=== PATIENT | female | born 1965 | race Hispanic/Latino ===

== ENCOUNTER 2022-01-26 05:55 | Day surgery (SDC) | payer BC ==
[2022-01-26] MEDS ORDERED: MIDAZOLAM 2 MG/2 ML INJ IV NR (06:00)
[2022-01-26] MEDS ORDERED: LACTATED RINGERS 1,000 ML IV SCH (06:00)
[2022-01-26] MEDS ORDERED: WATER FOR IRRIG STERILE 1,500 ML BOTTLE IR ONE (07:37)
[2022-01-26] MEDS ORDERED: WATER FOR IRRIG STERILE 2000 ML IR ONE (07:37)
[2022-01-26] MEDS ORDERED: ONDANSETRON 4 MG/2 ML INJ IV PRN (07:50)
--- NOTE | 2022-01-26 07:50 | Anesthesia Consultation ---
Anesthesia Consult and Med Hx Date of service: 01/26/22 - Airway Anesthetic Teeth Evaluation: Good (crack lower left molar) ROM Head & Neck: Adequate Mental/Hyoid Distance: Adequate Mallampati Class: Class II Intubation Access Assessment: Probably Good - Pre-Operative Health Status ASA Pre-Surgery Classification: ASA2 Proposed Anesthetic Plan: General - Pulmonary Hx Smoking: No Hx Respiratory Symptoms: No Hx Sleep Apnea: No (NATE PRE SCREEN LOW RISK) - Cardiovascular System Hx Hypertension: No Hx Heart Attack/AMI: No (recent negative stress test and normal EF) Hx Percutaneous Transluminal Coronary Angioplasty (PTCA): No Hx Cardia Arrhythmia: Yes (a-fib/flutter; took metoprolol and flecainide this morning) Hx Pacemaker: No Hx Internal Defibrillator: No - Central Nervous System CVA: No - Endocrine Hx Renal Disease: No Hx Liver Disease: No Hx Insulin Dependent Diabetes: No Hx Non-Insulin Dependent Diabetes: No Hx Thyroid Disease: No - Additional Comments Anesthesia Medical History Comments: No hx anesthetic complications.
--- NOTE | 2022-01-26 07:50 | Anesthesia Day of Surgery ---
Anesthesia Day of Surgery - Day of Surgery Patient Examined: Yes Patient H&P Reviewed: Yes Patient is NPO: Yes
[2022-01-26] MEDS ORDERED: HYDROmorphone 1 MG/1 ML INJ IV PRN (08:00)
[2022-01-26] MEDS ORDERED: ceFAZolin/Water 2 GM/20 ML 2 GM/20 ML SYRINGE IV ONE (08:05)
[2022-01-26] MEDS ORDERED: ceFAZolin/STERILE WATER 2 GM/20 ML SYRINGE IV NR (10:00)
--- NOTE | 2022-01-26 10:28 | Operative Report ---
DATE OF SURGERY: 01/26/2022 PREOPERATIVE DIAGNOSES: Pelvic pain and microscopic hematuria. POSTOPERATIVE DIAGNOSES: Pelvic pain and microscopic hematuria. PROCEDURES: Cystoscopy, hydrodistention, bimanual exam, retrograde. SURGEON: Luis Nicole MD ANESTHESIA: General. FINDINGS: This is a woman with pelvic pain and irritation. She now presents for cystoscopic evaluation under anesthesia. All risks and implications discussed. DESCRIPTION OF PROCEDURE: The patient was brought to the operating room and placed on the operating table. Following induction of anesthesia placed in the lithotomy position, prepped and draped in the usual sterile fashion. Cystoscopy showed no papillary lesions. Retrograde showed good filling, good drainage. No persistent filling defects. There was no active bleeding. There was a small erythema of posterior wall, which was biopsied and cauterized. A hydrodistention was done first, easily accommodated over 750 mL. The patient tolerated the procedure well. There were a few glomerulations posteriorly, but not diffusely. The patient tolerated the procedure well and brought to recovery in a stable condition. TID: [id number] RECEIPT: [id number] JACQUELIN/PEDRO
--- NOTE | 2022-01-26 10:33 | Post Anesthesia Evaluation ---
- Post Anesthesia Evaluation Patient Participated: Yes Airway Patent: Yes Stable Respiratory Function: Yes Nausea/Vomiting: No Temp > 96.8F: Yes Pain Manageable: Yes Adequeate Hydration: Yes Anesthesia Complications: No
--- NOTE | 2022-01-26 11:37 | Discharge Summary ---
Short Stay Discharge Plan Activity: other (no straining ) Weight Bearing Status: Full Weight Bearing Diet: low fat, low cholesterol, low salt Additional Instructions: KEEP FOLLOW UP APPOINTMENT TAKE MEDS PRESCRIBED YOU MAY RESUME YOUR REGULAR DIET -- AVOID SPICY OR GREASY FOODS FOR FIRST MEAL DO NOT DRIVE, OPERATE HEAVY EQUIPMENT OR SIGN LEGAL DOCUMENTS X 24 HRS Follow up with: PRIMARY CARE, [Primary Care Provider] - 7 Days EL MILES MD [Staff Physician] - 7 Days Forms: Outpatient [facility].
--- NOTE | 2022-01-26 11:37 | Post Operative Note ---
Date of procedure: 01/26/22 Pre-op diagnosis: pelvic Post-op diagnosis: same Findings: min erythema Procedure: cysto hydro rpgs Anesthesia: GETA Surgeon: EL MILES Estimated blood loss: none Pathology: list (bladder) Specimen disposition: to lab Condition: stable Disposition: PACU
[2022-01-26 12:38] VITALS: BP 110/59
--- NOTE | 2022-01-26 17:00 | Fluoroscopy Report ---
. FL retrograde urography Technique: Intraoperative fluoroscopic guidance was provided. Fluoroscopy time: 21 seconds. Fluoroscopy images: 8. Findings/Impression: Intraoperative fluoroscopic guidance for bilateral retrograde pyelograms. Please see procedure report for further details. Signer Name: Angelito Flores MD Signed: 01/26/2022 4:56 PM Workstation Name: [facility]
== END 2022-01-26 10:45 | disposition home or self-care (01) ==
LOC: OR 05:55
PROVIDERS: ATTEND Urology
DX: R10.2 Pelvic and perineal pain (principal); R31.29 Other microscopic hematuria; N39.0 Urinary tract infection, site not specified; N32.89 Other specified disorders of bladder; E78.00 Pure hypercholesterolemia, unspecified; I48.91 Unspecified atrial fibrillation; K21.9 Gastro-esophageal reflux disease without esophagitis; Z79.899 Other long term (current) drug therapy; Z90.49 Acquired absence of other specified parts of digestive tract; Z98.890 Other specified postprocedural states
CPT/HCPCS: 52204; 74420; 88305; C1758; J0690; J1170; J7120; Q9967